=== PATIENT | female | born 1970 | race Caucasian/White ===

== ENCOUNTER → 2017-01-07 | Outpatient (CLI) | payer OTHER ==
[~2017-01-07] MED LIST: CHOL200014 PO; HCT25T PO; LSNP10T PO; NITR100C3 PO; OMG1KC PO; SELE100T PO; ZIJA
--- NOTE | 2017-01-07 14:33 | Diagnostic Imaging Report ---
INDICATION: Left hand pain. AP, oblique, and lateral views of the left hand are obtained. FINDINGS: No fracture or acute bony abnormality is seen. Joint spaces are unremarkable. IMPRESSION: Negative left hand. Dictated by: Dictated on workstation # [id number]
== END ==
LOC: RAD 13:24
PROVIDERS: ATTEND Nurse Practitioner Family
DX: M79.642 Pain in left hand (principal)
CPT/HCPCS: 73130